=== PATIENT | female | born 1970 | race Caucasian/White ===

== ENCOUNTER 2017-06-05 11:43 | Emergency (ER) | payer BC ==
[~2017-06-05] VITALS: Ht 175.3 cm; Wt 113.4 kg
[~2017-06-05 11:43] MED LIST: ALLERGY4 MG PO; AMARYL4 MG PO; ASPIR-TRIN325 MG PO; AUGMENTIN 875-1 EACH PO; B COMPLETE1 EACH PO; CALMAG THINS T1 EACH PO; DOXYCYCLINE HY100 MG PO; FISH OIL 1,001000 MG PO; FLUTICASONE PRO16 GM NAS; HYDROCHLOROTH12.5 MG PO; HYDROCHLOROTHIA25 MG PO; INSULIN PEN NE1 EACH MISC; IRBESARTAN75 MG PO; JANUMET 50-5001 EACH PO; LANTUS SOL100 UNIT/1 SUB-Q; METFORMIN HCL1000 MG PO; METRONIDAZOLE500 MG PO; NOVOLOG FL100 UNIT/1 SUB-Q; PERCOCET 10-321 EACH PO; PRENATAL FORMU1 EAC1 PO; VENTOLIN HFA18 GM INH; VITAMIN D2000 UNIT
[2017-06-05] MEDS ORDERED: KETOROLAC TROME10 MG PO (13:13)
[2017-06-05] MEDS ORDERED: MACRODANTIN100 MG PO (13:13)
== END 2017-06-05 13:46 | disposition home or self-care (01) ==
LOC: ED 11:43
DX: R10.9 Unspecified abdominal pain (principal); E11.9 Type 2 diabetes mellitus without complications; E78.00 Pure hypercholesterolemia, unspecified; F17.200 Nicotine dependence, unspecified, uncomplicated; Z98.51 Tubal ligation status; Z90.49 Acquired absence of other specified parts of digestive tract; Z88.2 Allergy status to sulfonamides; Z88.1 Allergy status to other antibiotic agents; Z88.5 Allergy status to narcotic agent; Z89.422 Acquired absence of other left toe(s); Z91.018 Allergy to other foods; Z79.4 Long term (current) use of insulin; Z79.899 Other long term (current) drug therapy
CPT/HCPCS: 80053; 81001; 85025; 96374; 99283; J1885

== ENCOUNTER 2021-11-08 14:52 | Emergency (ER) | payer BC ==
[~2021-11-08] VITALS: Ht 175.3 cm; Wt 133.8 kg
[~2021-11-08 14:52] MED LIST changes: +KETOROLAC TROME10 MG PO; +MACRODANTIN100 MG PO
[2021-11-08] MEDS ORDERED: DOXYCYCLINE HY100 MG PO (18:28)
--- NOTE | 2021-11-09 13:45 | EKG ---
[facility] [address] [facility] [place] [address] Signed Normal sinus rhythm Left axis deviation Pulmonary disease pattern Abnormal ECG Confirmed by RICARDO ELY MD ([id number]) on 11/09/2021 1:45:19 PM Electronically Signed By: RICARDO ELY MD 11/09/21 1345 PATIENT NAME: HIRAM SANTAMARIA Electrocardiogram DATE OF : 70 PHYSICIAN: RICARDO ELY MD REPORT #: [id number] REPORT IS CONFIDENTIAL AND NOT TO BE RELEASED WITHOUT AUTHORIZATION
== END 2021-11-08 18:53 | disposition home or self-care (01) ==
LOC: ED 14:52
DX: E11.65 Type 2 diabetes mellitus with hyperglycemia (principal); J40 Bronchitis, not specified as acute or chronic; Z20.822 Contact with and (suspected) exposure to COVID-19; E78.00 Pure hypercholesterolemia, unspecified; I10 Essential (primary) hypertension; F17.200 Nicotine dependence, unspecified, uncomplicated; Z88.2 Allergy status to sulfonamides; Z88.1 Allergy status to other antibiotic agents; Z88.5 Allergy status to narcotic agent; Z88.8 Allergy status to other drugs, medicaments and biological substances; Z79.4 Long term (current) use of insulin; Z79.899 Other long term (current) drug therapy
CPT/HCPCS: 36415; 71045; 80053; 81001; 83690; 85025; 93005; 93010; 96374; 96376; 99284-25; C9803; J1815; J7030; U0003

== ENCOUNTER 2024-04-10 12:43 | Inpatient (IN) | payer OTHER ==
[~2024-04-10] VITALS: Ht 175.3 cm; Wt 124.1 kg
[~2024-04-10 12:43] MED LIST changes: +ADULTS' DAILY1 EAC1 PO; +ALLER-TEC10 MG PO; +FLUTICASONE P15.8 ML NAS; -FLUTICASONE PRO16 GM NAS; -PRENATAL FORMU1 EAC1 PO
[2024-04-10] MEDS ORDERED: DEXTROSE 5% 0 ML IV ONE (13:07)
[2024-04-10] MEDS ORDERED: PIPERACILLIN/TAZOBACTAM 3.375 GM VIAL ONE ×2 (13:07→22:03)
[2024-04-10] MEDS ORDERED: LASIX20 MG PO (13:07)
[2024-04-10] MEDS ORDERED: PIPERACILLIN/TAZOBACTAM 3.375 GM in DEXTROSE 5% 100 ML IV ONE (13:15)
[2024-04-10] MEDS ORDERED: SODIUM CHLORIDE 0.9% 1,000 ML IV ONE (13:15)
[2024-04-10] MEDS ORDERED: DAPTOmycin 500 MG/10 ML VIAL IV ONE ×2 (13:15→13:30)
[2024-04-10] MEDS ORDERED: SODIUM CHLORIDE 0.9% 1,000 ML IV PRN (13:15)
[2024-04-10 13:31] LABS: BASOPHILS 0.6 % (0-2); EOSINOPHILS 0.3 % (0-6); HEMOGLOBIN 14.6 g/dL (12.0-18.0); LYMPHOCYTES 7.6 % (24-44); MCH 30.2 (27-36); MCHC 33.2 g/dl (30-36); MCV 90.9 fl (81-99); MONOCYTES 9.3 % (0-12); NEUTROPHILS 82.2 % (39-80); PLATELET COUNT 194 K/uL (140-440); RBC 4.84 M/ul (4.3-5.7); RDW 15.3 (10.5-15.0)
[2024-04-10 13:47] LABS: ALBUMIN 1.6 g/dL (3.4-5.0); ALBUMIN/GLOBULIN RATIO 0.3 (1.1-2.4); ANION GAP 13.6 (7-21); BILIRUBIN, TOTAL 0.5 ng/dL (0.2-1.0); BUN/CREATININE RATIO 18.57 (6.0-28.6); CALCIUM 9.5 mg/dL (8.5-10.1); CREATININE, SERUM 1.4 mg/dL (0.55-1.02); POTASSIUM 3.6 mmol/L (3.5-5.1); PROTEIN, TOTAL 6.9 g/dL (6.4-8.2)
[2024-04-10 13:56] LABS: PARTIAL THROMBOPLASTIN TIME 33.3 Sec (22.9-41.3)
[2024-04-10 13:57] LABS: INR 1.22 (0.80-1.30); PROTIME 14.7 Sec (11.2-14.2)
[2024-04-10 14:04] LABS: LACTIC ACID, BLOOD 1.4 mmol/L (0.4-2.0)
[2024-04-10 15:05] LABS: BILIRUBIN, URINE NEGATIVE (negative); BLOOD/HGB, URINE TRACE-I (Negative); KETONE, URINE SMALL (Negative); LEUK ESTERASE, URINE NEGATIVE (negative); NITRITE, URINE NEGATIVE (negative)
[2024-04-10 15:14] LABS: BACTERIA, URINE RARE /hpf (negative); CASTS, URINE HYALINE 1+ \\lpf; CRYSTALS, URINE NONE SEEN (0-1+); EPITHELIAL CELLS, URINE SQUAMOUS 3+ /lpf (0-1+); WHITE BLOOD CELLS, URINE 0-1 /HPF (0-5)
[2024-04-10 15:15] LABS: COLLECTION TYPE, URINE CLEAN CATCH; REFLEX CULTURE, URINE No (No)
[2024-04-10] MEDS ORDERED: Insulin Regular, Human 100 UNIT/ML ML IV ONE (16:15)
[2024-04-10] MEDS ORDERED: ondansetron HCL 4 MG/2 ML VIAL IV PRN (17:15)
[2024-04-10] MEDS ORDERED: ACETAMINOPHEN 325 MG TAB PO PRN (17:15)
[2024-04-10] MEDS ORDERED: GLUCAGON,HUMAN RECOMBINANT 1 MG/ML VIAL SUB-Q PRN (17:15)
[2024-04-10] MEDS ORDERED: SODIUM CHLORIDE 0.9% 1,000 ML IV SCH (17:15)
[2024-04-10] MEDS ORDERED: PROCHLORPERAZINE EDISYLATE 10 MG/2 ML VIAL IV PRN (17:15)
[2024-04-10] MEDS ORDERED: IBLOOD GLUCOSE TEST STRIP 1 EA TEST XX PRN (17:15)
[2024-04-10] MEDS ORDERED: DEXTROSE 5% 1,000 ML IV PRN (17:15)
[2024-04-10] MEDS ORDERED: DEXTROSE 50% 50 ML SYR IV PRN ×2 (17:15)
[2024-04-10 17:36] VITALS: BP 159/65
[2024-04-10] MEDS ORDERED: GABAPENTIN300 MG PO (17:41)
[2024-04-10] MEDS ORDERED: METOPROLOL SUCC25 MG PO (17:42)
[2024-04-10 20:38] VITALS: BP 154/80
[2024-04-10] MEDS ORDERED: IBLOOD GLUCOSE TEST STRIP 1 EA TEST VI SCH (21:00)
[2024-04-10] MEDS ORDERED: INSULIN GLARGINE-YFGN 100 UNIT/ML ML SUB-Q SCH ×2 (21:00)
[2024-04-10] MEDS ORDERED: INSULIN LISPRO 100 UNIT/ML ML SUB-Q SCH (21:00)
[2024-04-10] MEDS ORDERED: PIPERACILLIN/TAZOBACTAM 3.375 GM in DEXTROSE 5% 100 ML IV SCH (22:00)
[2024-04-11] VITALS (11 sets, daily range): BP systolic 118–151; BP diastolic 54–69
[2024-04-11 05:59] LABS: HEMOGLOBIN 13.1 g/dL (12.0-18.0); MCV 91.4 fl (81-99)
[2024-04-11 06:02] LABS: HEMATOCRIT 40.6 % (35.0-50.0); MCH 29.6 (27-36); MCHC 32.3 g/dl (30-36); PLATELET COUNT 209 K/uL (140-440); RBC 4.44 M/ul (4.3-5.7); RDW 15.4 (10.5-15.0)
[2024-04-11 06:23] LABS: ALBUMIN 1.4 g/dL (3.4-5.0); ALBUMIN/GLOBULIN RATIO 0.27 (1.1-2.4); ANION GAP 11.3 (7-21); BILIRUBIN, TOTAL 0.5 ng/dL (0.2-1.0); BUN/CREATININE RATIO 17.03 (6.0-28.6); CREATININE, SERUM 1.35 mg/dL (0.55-1.02); MAGNESIUM 1.9 mg/dL (1.8-2.4); PHOSPHORUS, INORGANIC 2.6 mg/dL (2.5-4.9); POTASSIUM 3.3 mmol/L (3.5-5.1); PROTEIN, TOTAL 6.6 g/dL (6.4-8.2)
[2024-04-11] MEDS ORDERED: PIPERACILLIN/TAZOBACTAM 3.375 GM VIAL ONE (06:30)
[2024-04-11 06:42] LABS: BANDS, MANUAL DIFF 2; BASOPHILS, MANUAL DIFF 1; LYMPHOCYTES, MANUAL DIFF 22; MONOCYTES, MANUAL DIFF 4; NEUTROPHILS, MANUAL DIFF 71
[2024-04-11] MEDS ORDERED: OXYCODONE HCL 5 MG TAB PO PRN (06:45)
[2024-04-11] MEDS ORDERED: HYDROmorphone HCL 1 MG/ML SYR IV PRN (06:45)
--- NOTE | 2024-04-11 07:24 | CONS ---
[facility] [address] [place], [place] [address] Signed DATE OF CONSULTATION: 04/11/2024 CHIEF COMPLAINT: Right gluteal pain and swelling. HISTORY OF PRESENT ILLNESS: Hiram is a 54-year-old obese diabetic female, who I know from the past when we drained a left gluteal abscess a few years ago. She says now she has it on the right, it had been getting worse and her had used some sterilized tweezers to try to open it at home. It has gotten progressively worse in the last four days. The family finally brought her to the emergency room for evaluation. In the emergency room, her vital signs were fine, but her white count is borderline at 12.7 and of course her blood sugars were up close to 500. Lactic acid was normal. Chest x-ray was fine. CT scan of abdomen and pelvis shows this right gluteal subcutaneous inflammation and possible fluid, this is confirmed on physical exam. She was admitted to our hospitalist service. She was given pain control along with Zosyn and daptomycin. I have been asked to see her as a local general surgeon. PAST MEDICAL HISTORY: Degenerative disc disease, diabetes, hypertension, hypercholesterolemia, and obesity. PAST SURGICAL HISTORY: Includes cholecystectomy, bilateral tubal ligation, tonsillectomy, left 5th toe amputation for osteomyelitis, and I and D of left gluteal abscess by Dr. Urbina. SOCIAL HISTORY: She does not drink. Dr. Luke Ramires is her primary care provider. Elvis is her at , they live in [place], [place]. They prefer the [facility] in [place], [place]. FAMILY HISTORY: None. REVIEW OF SYSTEMS: She had 10 systems reviewed, there is nothing new to add. ALLERGIES: Sulfa, morphine, erythromycin, and nitrofurantoin. MEDICATIONS: Insulin, metformin, hydrochlorothiazide, albuterol, fluticasone, chlorpheniramine, Lasix, calcium, magnesium, multivitamin, vitamin B complex, and vitamin D. Electronically Signed By: VERN URBINA MD 04/11/24 0724 PATIENT NAME: HIRAM SANTAMARIA CONSULTATION DATE OF : 70 REPORT #: [id number] PHYSICIAN: VERN URBINA MD PCP: LUKE RAMIRES MD REPORT IS CONFIDENTIAL AND NOT TO BE RELEASED WITHOUT AUTHORIZATION [facility] [address] [place], [place] [address] Signed PHYSICAL EXAMINATION: VITAL SIGNS: Her blood pressure is 147/59, heart rate 88, respiratory rate 16, temperature is 99.2, and she is at 91%-99% on room air. She is 5 feet 9 inches tall at 124 kg with a body mass index of 40. GENERAL: Hiram is a 54-year-old obese female, lying in the left lateral decubitus position in her hospital bed. Our nurses witnessed. She does not appear systemically ill or toxic. She is alert, awake, and interactive. LUNGS: Clear to auscultation bilaterally. HEART: Regular rate and rhythm without murmurs. ABDOMEN: Obese. : We can easily see this area of erythema and swelling and warmth on the right gluteal area and then small opening around the skin just lateral to the anus. The surrounding skin was quite indurated. LABORATORY DATA: Her white blood count 12.7, hemoglobin 14, neutrophils 81, and platelets are 194. Sodium is 130, BUN 26, creatinine 1.4, and blood sugar was 499, it is down to 380. Urine showed lots of protein and glucose. INR is 1.2. Lactic acid 1.4, albumin is 1.6. Blood cultures are pending. RADIOGRAPHIC STUDIES: Chest x-ray was unremarkable. CT scan of abdomen and pelvis shows the right gluteal subcutaneous inflammation and possible fluid collection. ASSESSMENT/PLAN: Hiram is a 54-year-old obese diabetic female with a right gluteal abscess. She has been admitted to the Medical Service and started on IV fluids and antibiotics. Hiram has been through this before several years ago with myself. She knows we are going to take her to the operating room later this morning, we will incise and drain that area and return her to her room afterwards, and she will continue on the IV antibiotics. She has expressed understanding and wishes to proceed. Vern Urbina MD ALB/MODL /[id number] cc: Vern Urbina MD Electronically Signed By: VERN URBINA MD 04/11/24 0724 PATIENT NAME: HIRAM SANTAMARIA CONSULTATION DATE OF : 70 REPORT #: [id number] PHYSICIAN: VERN URBINA MD PCP: LUKE RAMIRES MD REPORT IS CONFIDENTIAL AND NOT TO BE RELEASED WITHOUT AUTHORIZATION [address] [place] [address] Signed Luke Ramires MD Copies: VERN URBINA MD, RUSSELL BARR MD ~ Electronically Signed By: VERN URBINA MD 04/11/24 0724 PATIENT NAME: HIRAM SANTAMARIA MELONY CONSULTATION DATE OF : 70 REPORT #: [id number] PHYSICIAN: VERN URBINA MD PCP: LUKE RAMIRES MD REPORT IS CONFIDENTIAL AND NOT TO BE RELEASED WITHOUT AUTHORIZATION
[2024-04-11] MEDS ORDERED: POTASSIUM CHLORIDE 10 MEQ TABCR PO ONE (08:00)
[2024-04-11] MEDS ORDERED: POTASSIUM CHLORIDE 40 MEQ in DEXTROSE 5% 250 ML IV ONE (08:00)
[2024-04-11] MEDS ORDERED: SODIUM HYPOCHLORITE 0.5% 480 ML BTL ONE (08:17)
[2024-04-11] MEDS ORDERED: POTASSIUM CHLORIDE 40 MEQ,LIDOCAINE HCL 1% 40 MG in DEXTROSE 5% 250 ML IV ONE (08:30)
[2024-04-11] MEDS ORDERED: INSULIN GLARGINE-YFGN 100 UNIT/ML ML SUB-Q SCH (09:00)
[2024-04-11] MEDS ORDERED: MIDAZOLAM HCL 2 MG/2 ML VIAL ONE (09:53)
[2024-04-11] MEDS ORDERED: LIDOCAINE HCL 2% 5 ML SDV ONE ×2 (09:53→10:30)
[2024-04-11] MEDS ORDERED: BUPIVACAINE 0.75% IN DEXTROSE 2 ML AMP ONE (09:53)
[2024-04-11] MEDS ORDERED: propofoL 200 MG/20 ML VIAL ONE (10:28)
[2024-04-11] MEDS ORDERED: KETOROLAC TROMETHAMINE 30 MG/ML VIAL ONE (10:51)
[2024-04-11] MEDS ORDERED: fentaNYL citrate 50 MCG/ML SDV IV PRN (11:15)
[2024-04-11] MEDS ORDERED: NALOXONE HCL 0.4 MG SYR IV PRN (11:15)
[2024-04-11] MEDS ORDERED: ondansetron HCL 4 MG/2 ML VIAL IV PRN (11:15)
[2024-04-11] MEDS ORDERED: IBLOOD GLUCOSE TEST STRIP 1 EA TEST VI PRN (11:15)
[2024-04-11] MEDS ORDERED: PHARMACY RENAL DOSE ADJUSTMENT 1 DOSE MISC PO SCH (12:00)
[2024-04-11] MEDS ORDERED: DAPTOmycin 500 MG/10 ML VIAL IV SCH (12:00)
[2024-04-11] MEDS ORDERED: ADULTS' DAILY1 EAC1 PO (14:56)
[2024-04-11] MEDS ORDERED: BASAGLAR K100 UNIT/1 SUB-Q (14:58)
[2024-04-11] MEDS ORDERED: ASPIRIN EC325 MG PO (15:11)
[2024-04-11] MEDS ORDERED: GABAPENTIN 300 MG CAP PO SCH (21:00)
--- NOTE | 2024-04-11 22:09 | EKG ---
[facility] [address] [place] [address] Signed Normal sinus rhythm Right superior axis deviation Pulmonary disease pattern Abnormal ECG When compared with ECG of 08-NOV-2021 16:31, No significant change was found Confirmed by Patrick Mcghee MD () on 04/11/2024 10:09:31 PM Electronically Signed By: PATRICK MCGHEE MD 04/11/24 2209 PATIENT NAME: ROSALIOHIRAMCASSI TY Electrocardiogram DATE OF : 70 PHYSICIAN: PATRICK MCGHEE MD REPORT #: [id number] REPORT IS CONFIDENTIAL AND NOT TO BE RELEASED WITHOUT AUTHORIZATION
[2024-04-12] VITALS (9 sets, daily range): BP systolic 119–160; BP diastolic 53–72
[2024-04-12 06:05] LABS: BASOPHILS 0.7 % (0-2); HEMATOCRIT 38.1 % (35.0-50.0); HEMOGLOBIN 12.4 g/dL (12.0-18.0); LYMPHOCYTES 13.4 % (24-44); MCH 29.7 (27-36); MCHC 32.7 g/dl (30-36); MCV 90.9 fl (81-99); MONOCYTES 9.9 % (0-12); PLATELET COUNT 203 K/uL (140-440); RBC 4.19 M/ul (4.3-5.7); RDW 15.5 (10.5-15.0)
[2024-04-12 06:21] LABS: ALBUMIN 1.2 g/dL (3.4-5.0); ALBUMIN/GLOBULIN RATIO 0.25 (1.1-2.4); ANION GAP 9.3 (7-21); BILIRUBIN, TOTAL 0.4 ng/dL (0.2-1.0); BUN/CREATININE RATIO 18.89 (6.0-28.6); CALCIUM 8.5 mg/dL (8.5-10.1); CREATININE, SERUM 1.27 mg/dL (0.55-1.02); POTASSIUM 3.3 mmol/L (3.5-5.1)
--- NOTE | 2024-04-12 07:15 | OR ---
[facility] [address] [place], [place] [address] Signed DATE OF OPERATION: 04/11/2024 SURGEON: Vern Urbina MD PREOPERATIVE DIAGNOSIS: Right gluteal abscess. POSTOPERATIVE DIAGNOSIS: Right gluteal abscess. PROCEDURES: 1. Incision and drainage, right gluteal abscess. 2. Deep wound cultures. ESTIMATED BLOOD LOSS: None. INDICATIONS: Hiram is a 54-year-old diabetic female with a hemoglobin A1c greater than 14 and blood sugars approaching 500. For at least four days, she developed area of erythema, swelling, pain and warmth to the right of the anus out on the gluteal area. It started as a small pimple and increased in size. It came to the surface and her tried to unroof that bit at home. Unfortunately, the cellulitis continued to expand. She came into the emergency room for evaluation. White count was 12.7. The CT scan confirmed a right gluteal subcutaneous inflammation and fluid collection. She had been given Zosyn and daptomycin, admitted overnight. Medical service had been seeing her as well to help with her blood sugars and her hypertension. I had met with Hiram and her earlier today. They reminded me that I helped her in the exact same situation only on the left side a number of years ago. Consequently, they are very familiar with this process. She understand she needs incision and drainage of this wound and it will be left open and packed with gauze. She will need IV antibiotics for short time and then finish up on p.o. antibiotics. She also has been instructed to take much better care of her diabetes and blood sugars. There is risk to the surgery including, but not limited to bleeding, infection, scarring, change in contour of the skin and recurrent abscesses in the same or other locations. They had expressed understanding, wished to proceed. PROCEDURE IN DETAIL: Hiram was given a saddle block by our nurse take away attendant. After this, she was taken into the operating room and placed in the prone asha-knife position with appropriate Electronically Signed By: VERN URBINA MD 04/12/24 0715 PATIENT NAME: HIRAM SANTAMARIA OPERATIVE REPORT DATE OF : 70 REPORT #: [id number] PHYSICIAN: VERN RUBINA MD PCP: LUKE CAREY MD REPORT IS CONFIDENTIAL AND NOT TO BE RELEASED WITHOUT AUTHORIZATION [facility] [address] [place] [id number] Signed padding and monitoring. She was lightly sedated by her nurse take away attendant. She was prepped and draped in the usual sterile fashion. SCDs were in place. It was very easy to identify the operative site. We simply removed elliptical incision of skin about 3 cm long and a cm wide. Her abscess cavity actually tracked cephalad up the right side about 6-8 cm. All the pus was evacuated and deep wall wound cultures have been taken. The wound was irrigated until completely clear. All the loculations were broken up with the index finger. Additional local anesthetic was then injected in the wound. We then used full strength Dakin's soaked gauze and packed the wound completely. 12 inches and 4 inch wide Kerlix gauze was inserted. Dry gauze was placed over this along with an ABD and mesh underwear. Hiram was then rotated into the supine position on her hospital bed and taken into recovery room in stable condition. Vern Urbina MD ALB/MODL /[id number] cc: MD Vern Stinson MD Copies: LUKE CAREY MD, ANDREW L MD ~ Electronically Signed By: VERN URBINA MD 04/12/24 0715 PATIENT NAME: HIRAM SANTAMARIA OPERATIVE REPORT DATE OF : 70 REPORT #: [id number] PHYSICIAN: VERN URBINA MD PCP: LUKE CAREY MD REPORT IS CONFIDENTIAL AND NOT TO BE RELEASED WITHOUT AUTHORIZATION
[2024-04-12] MEDS ORDERED: POTASSIUM CHLORIDE 10 MEQ TABCR PO ONE ×2 (07:30→08:30)
[2024-04-12] MEDS ORDERED: ALBUTEROL SULFATE 0.083% 3 ML VIAL INH PRN (09:00)
[2024-04-12] MEDS ORDERED: MUPIROCIN 22 GM TUBE TOP PRN (10:00)
[2024-04-12] MEDS ORDERED: IBLOOD GLUCOSE TEST STRIP 1 EA TEST VI SCH (12:00)
[2024-04-12] MEDS ORDERED: INSULIN LISPRO 100 UNIT/ML ML SUB-Q SCH (12:00)
[2024-04-13 05:40] LABS: BASOPHILS 0.7 % (0-2); EOSINOPHILS 2.4 % (0-6); HEMATOCRIT 36.7 % (35.0-50.0); LYMPHOCYTES 15.4 % (24-44); MCH 29.8 (27-36); MCHC 32.8 g/dl (30-36); MCV 90.9 fl (81-99); MONOCYTES 11.8 % (0-12); NEUTROPHILS 69.7 % (39-80); PLATELET COUNT 237 K/uL (140-440); RBC 4.03 M/ul (4.3-5.7); RDW 15.4 (10.5-15.0)
[2024-04-13 05:56] LABS: ALBUMIN 1.3 g/dL (3.4-5.0); ALBUMIN/GLOBULIN RATIO 0.26 (1.1-2.4); ANION GAP 12.1 (7-21); BILIRUBIN, TOTAL 0.4 ng/dL (0.2-1.0); BUN/CREATININE RATIO 18.54 (6.0-28.6); CALCIUM 8.5 mg/dL (8.5-10.1); CREATININE, SERUM 1.24 mg/dL (0.55-1.02); POTASSIUM 4.1 mmol/L (3.5-5.1); PROTEIN, TOTAL 6.3 g/dL (6.4-8.2)
[2024-04-13 06:04] VITALS: BP 129/53
[2024-04-13 06:19] VITALS: BP 129/53
--- NOTE | 2024-04-13 08:31 | DS ---
[facility] [address] [facility] [place] [address] Signed ADMISSION DATE: 04/10/2024 DISCHARGE DATE: 04/13/2024 FINAL DIAGNOSES: 1. Right gluteal abscess. 2. Uncontrolled diabetes. PROCEDURE: 1. Incision and drainage of right gluteal abscess. 2. CT scan of abdomen and pelvis. 3. Chest x-ray. HISTORY OF PRESENT ILLNESS: Hiram is a 54-year-old obese diabetic female, who apparently was unemployed for a while. Her insurance had lapsed and she did not have means to purchase her insulin. Apparently, has been corrected according to her . In the meantime, she developed swelling in the right gluteal area just lateral to the anus. She has been through this before on the left side. She finally came to the emergency room for evaluation after at least four days. She was in no acute distress. She clearly had a gluteal abscess. White count was a little elevated at 12.7. Blood sugars were almost 500. I have been asked to see her as a general surgeon on-call. HOSPITAL COURSE: Hiram was admitted as above on Zosyn and daptomycin. I took her to the operating room that same day incised and drained that abscess. The wound cultures are still pending. She has been maintained on the Zosyn and the daptomycin. She is markedly improved. The erythema is at least half what it was. She still has some induration right around the abscess cavity. We have also been using some mupirocin ointment on the skin around the opening to the wound. She has been tolerating her diabetic diet. Our hospitalist service has helped her with her blood sugars and her insulin and it is markedly improved and down into the 200s. At this point, she would like to go home. DISCHARGE PLANS AND MEDICATIONS: Hiram is going to be discharged to home with a prescription for Augmentin 875 mg one p.o. b.i.d. for 10 days. She will be given Flagyl 250 mg one p.o. t.i.d. for 10 days. She will also be given mupirocin ointment to apply around the skin twice a day. She will shower directly into the wound twice a day with soap and water. We discontinued the packing currently. She should cover that area with dry women's Paree pad and her underwear. We will give her a small script for oxycodone immediate release 5 mg one p.o. q.6 hours p.r.n. for severe postoperative pain. We will dispense 15 tablets with no refills. She is going to continue her medications at home including her insulin with Electronically Signed By: VERN URBINA MD 04/13/24 0831 PATIENT NAME: HIRAM SANTAMARIA DISCHARGE SUMMARY DATE OF : 70 REPORT #: [id number] PHYSICIAN: VERN URBINA MD PCP: LUKE CAREY MD REPORT IS CONFIDENTIAL AND NOT TO BE RELEASED WITHOUT AUTHORIZATION [address] [address] Signed the help of the hospitalist instructions. She is welcome to perform her activities of daily living including walking up and down stairs and showering bathing as usual. I will have her back in the office in about 10-14 days for followup. She has expressed understanding, agrees above plan. Vern Urbina MD ALB/MODL /[id number] cc: MD Luke Gray MD Copies: VERN URBINA MD, RUSSELL BARR MD ~ Electronically Signed By: VERN URBINA MD 04/13/24 0831 PATIENT NAME: HIRAM SANTAMARIA DISCHARGE SUMMARY DATE OF : 70 REPORT #: [id number] PHYSICIAN: VERN URBINA MD PCP: LUKE CAREY MD REPORT IS CONFIDENTIAL AND NOT TO BE RELEASED WITHOUT AUTHORIZATION
[2024-04-13] MEDS ORDERED: METRONIDAZOLE250 MG PO (08:44)
[2024-04-13] MEDS ORDERED: AMOX TR-K CLV1 EAC1 PO (08:44)
[2024-04-13] MEDS ORDERED: MUPIROCIN22 GM TOP (08:46)
[2024-04-13] MEDS ORDERED: OXYCODONE HCL5 MG PO (08:47)
[2024-04-13 10:02] VITALS: BP 151/92
[2024-04-13] MEDS ORDERED: VENTOLIN HFA18 GM INH (11:04)
[2024-04-13] MEDS ORDERED: ALBUTEROL2.5 MG/3 M INH (11:04)
[2024-04-13] MEDS ORDERED: BASAGLAR K100 UNIT/1 SUB-Q (11:04)
== END 2024-04-13 11:15 | disposition home or self-care (01) | DRG 872 ==
LOC: ED 12:43 → MS 17:08
PROVIDERS: Colon & Rectal Surgery; Emergency Medicine; ADMIT Family Medicine; ATTEND Family Medicine
PROC: 3E03329 Introduction of Other Anti-infective into Peripheral Vein, Percutaneous Approach (ICD-10-PCS; 2024-04-10)
PROC: 0H98XZZ Drainage of Buttock Skin, External Approach (ICD-10-PCS; principal; 2024-04-11 10:15)
DX: A41.9 Sepsis, unspecified organism (principal); L02.31 Cutaneous abscess of buttock; N17.9 Acute kidney failure, unspecified; L03.317 Cellulitis of buttock; I10 Essential (primary) hypertension; E78.00 Pure hypercholesterolemia, unspecified; E66.9 Obesity, unspecified; E11.65 Type 2 diabetes mellitus with hyperglycemia; E87.6 Hypokalemia; F17.210 Nicotine dependence, cigarettes, uncomplicated; M51.9 Unspecified thoracic, thoracolumbar and lumbosacral intervertebral disc disorder; Z90.49 Acquired absence of other specified parts of digestive tract; Z90.89 Acquired absence of other organs; Z98.890 Other specified postprocedural states; Z98.51 Tubal ligation status; Z89.422 Acquired absence of other left toe(s); Z88.2 Allergy status to sulfonamides; Z88.8 Allergy status to other drugs, medicaments and biological substances; Z88.1 Allergy status to other antibiotic agents; Z79.4 Long term (current) use of insulin; Z79.84 Long term (current) use of oral hypoglycemic drugs; Z79.51 Long term (current) use of inhaled steroids; Z79.899 Other long term (current) drug therapy; Z79.01 Long term (current) use of anticoagulants
CPT/HCPCS: 00300; 36415; 71045; 74177; 76942; 80053; 81001; 82553; 83036; 83605; 83735; 84100; 85025; 85610; 85730; 87040; 87070; 87075; 87205; 93005; 93010; 94640; 94760; 94762; A9270; J0878; J1170; J1815; J1885; J2001; J2250; J2543; J2704; J3480; J3490; J7030; J7060

== ENCOUNTER 2024-06-15 10:32 | Emergency (ER) | payer OTHER ==
[~2024-06-15] VITALS: Ht 175.3 cm; Wt 129.3 kg
[~2024-06-15 10:32] MED LIST changes: +ALBUTEROL2.5 MG/3 M INH; +AMOX TR-K CLV1 EAC1 PO; +ASPIRIN EC325 MG PO; +BASAGLAR K100 UNIT/1 SUB-Q; +GABAPENTIN300 MG PO; +LASIX20 MG PO; +METOPROLOL SUCC25 MG PO; +METRONIDAZOLE250 MG PO; +MUPIROCIN22 GM TOP; +OXYCODONE HCL5 MG PO
[2024-06-15] MEDS ORDERED: AMOX TR-K CLV1 EAC1 (10:58)
[2024-06-15] MEDS ORDERED: METRONIDAZOLE250 MG PO (10:58)
[2024-06-15] MEDS ORDERED: AMP/SULBACTAM SOD 3 GM in SODIUM CHLORIDE 0.9% 100 ML IV ONE (11:15)
[2024-06-15] MEDS ORDERED: HYDROmorphone HCL 1 MG/ML SYR IV PRN (11:15)
[2024-06-15 12:06] LABS: BASOPHILS 0.8 % (0-2); EOSINOPHILS 3.4 % (0-6); HEMATOCRIT 42.9 % (35.0-50.0); HEMOGLOBIN 14.4 g/dL (12.0-18.0); LYMPHOCYTES 14.7 % (24-44); MCH 29.8 (27-36); MCHC 33.7 g/dl (30-36); MCV 88.4 fl (81-99); MONOCYTES 8.2 % (0-12); NEUTROPHILS 72.9 % (39-80); PLATELET COUNT 192 K/uL (140-440); RBC 4.85 M/ul (4.3-5.7); RDW 15.4 (10.5-15.0)
[2024-06-15 12:22] LABS: ALBUMIN 2.4 g/dL (3.4-5.0); ALBUMIN/GLOBULIN RATIO 0.53 (1.1-2.4); ANION GAP 9.1 (7-21); BILIRUBIN, TOTAL 0.5 ng/dL (0.2-1.0); BUN/CREATININE RATIO 24.79 (6.0-28.6); CALCIUM 9.4 mg/dL (8.5-10.1); CREATININE, SERUM 1.21 mg/dL (0.55-1.02); POTASSIUM 4.1 mmol/L (3.5-5.1); PROTEIN, TOTAL 6.9 g/dL (6.4-8.2)
--- OUTSIDE RECORDS SUMMARY | 2024-06-15 12:30 | XMS ---
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 Dhruv VISIT COUNT (12 MO.) 3 [facility] TOTAL 3 NOTE: Visits indicate total known visits. ED/UCC VISIT TRACKING (12 MO.) 06/15/2024 10:33 [facility] TYPE: Emergency COMPLAINT: - SKIN PROBLEM 06/14/2024 13:57 [facility] TYPE: Emergency COMPLAINT: - SKIN PROBLEM 04/10/2024 12:44 [facility] TYPE: Emergency COMPLAINT: - FATIGUE INPATIENT VISIT TRACKING (12 MO.) 04/10/2024 17:[address] [facility] [place] TYPE: Medical Surgical COMPLAINT: - RIGHT BUTTOCK ABCESS DIAGNOSES: - Acquired absence of other left toe(s) - Acquired absence of other left toe(s) - Acquired absence of other organs - Acquired absence of other organs - Acquired absence of other specified parts of digestive tract - Acquired absence of other specified parts of digestive tract - Acute kidney failure, unspecified - Acute kidney failure, unspecified - Allergy status to other antibiotic agents - Allergy status to other antibiotic agents - Allergy status to other drugs, medicaments and biological substances - Allergy status to other drugs, medicaments and biological substances - Allergy status to sulfonamides - Allergy status to sulfonamides - Cellulitis of buttock - Cellulitis of buttock - Cutaneous abscess of buttock - Essential (primary) hypertension - Essential (primary) hypertension - Hypokalemia - Hypokalemia - FPC (current) use of anticoagulants - FPC (current) use of anticoagulants - FPC (current) use of inhaled steroids - 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 - computer terminal operator (current) use of insulin - FPC (current) use of insulin - computer terminal operator (current) use of oral hypoglycemic drugs - FPC (current) use of oral hypoglycemic drugs - Nicotine dependence, cigarettes, uncomplicated - Nicotine dependence, cigarettes, uncomplicated - Obesity, unspecified - Obesity, unspecified - Other nursing home (current) drug therapy - Other nursing home (current) drug therapy - Other specified postprocedural states - Other specified postprocedural states - Pure hypercholesterolemia, unspecified - Pure hypercholesterolemia, unspecified - Sepsis, unspecified organism - Sepsis, unspecified organism - Tubal ligation status - Tubal ligation status - Type 2 diabetes mellitus with hyperglycemia - Type 2 diabetes mellitus with hyperglycemia - Unspecified thoracic, thoracolumbar and lumbosacral intervertebral disc disorder - Unspecified thoracic, thoracolumbar and lumbosacral intervertebral disc disorder [email or web address]
[2024-06-15] MEDS ORDERED: HYDROCODON-ACE1 EA11 PO (13:03)
[2024-06-15 13:24] VITALS: BP 164/80
== END 2024-06-15 13:26 | disposition home or self-care (01) ==
LOC: ED 10:32
PROVIDERS: Emergency Medicine
DX: N76.4 Abscess of vulva (principal); N76.2 Acute vulvitis; E11.9 Type 2 diabetes mellitus without complications; E78.00 Pure hypercholesterolemia, unspecified; I10 Essential (primary) hypertension; F17.200 Nicotine dependence, unspecified, uncomplicated; Z88.2 Allergy status to sulfonamides; Z88.1 Allergy status to other antibiotic agents; Z88.5 Allergy status to narcotic agent; Z79.84 Long term (current) use of oral hypoglycemic drugs; Z79.82 Long term (current) use of aspirin; Z79.899 Other long term (current) drug therapy
CPT/HCPCS: 10160; 36415; 76857; 80053; 85025; 96368; 99284-25; J0295; J1171